=== PATIENT | male | born 1950 | race African-American/Black ===

== ENCOUNTER 2021-04-22 15:16 | Inpatient (IN) | payer MEDICARE, MEDICAID ==
[~2021-04-22] VITALS: Ht 177.8 cm; Wt 80.8 kg
[~2021-04-22 15:16] MED LIST: AMLO10TA80 PO; ASPI-1497 PO; BENA40TA9 PO; FLUT9.9S NS; LORA10TA7 PO; METO-539 PO; P-EP-29 PO; SIMV-43 PO
[2021-04-22] MEDS ORDERED: SODIUM CHLORIDE 0.9% 1,000 ML IV ONE (19:00)
[2021-04-22] MEDS ORDERED: DIPHENHYDRAMINE 50MG/ML VIAL IV ONE (19:00)
[2021-04-22] MEDS ORDERED: CEFAZOLIN 1000MG PREMIX 50 ML IV SCH (19:00)
[2021-04-22 19:10] LABS: BASOPHILS % 0.5 % (0.0-2.0); EOSINOPHILS % 1.9 % (0.0-5.0); HEMATOCRIT. 43.7 % (42.0-52.0); HEMOGLOBIN. 15.2 g/dL (14.0-18.0); LYMPHOCYTES % 16.2 % (20.0-50.0); MEAN CORPUSCULAR HEMOGLOBIN 34.1 pg (28.0-32.0); MEAN CORPUSCULAR VOLUME 97.8 fL (80.0-94.0); MEAN PLATELET VOLUME 7.9 fl (7.4-10.4); MONOCYTES % 8.5 % (2.0-8.0); NEUTROPHILS % 72.9 % (40.0-76.0); PLATELET 336 x1000/uL (130-400); RED BLOOD CELL COUNT 4.47 mill/uL (4.7-6.1); RED CELL DISTRIBUTION WIDTH 13.6 % (11.6-14.6)
[2021-04-22 19:16] LABS: CHLORIDE 98 mEq/L (98-107)
[2021-04-22] MEDS ORDERED: VANCOMYCIN 1 G PREMIX 200 ML IV SCH (22:00)
[2021-04-22] MEDS ORDERED: HYDROCODONE/ACETAMINOPHEN 5/325MG TABLET PO PRN (22:45)
[2021-04-22] MEDS ORDERED: SODIUM POLYSTYRENE SULFONATE 15 G/60 ML BOT PO NR (22:45)
[2021-04-22] MEDS ORDERED: ACETAMINOPHEN 325MG TABLET PO PRN (22:45)
[2021-04-22] MEDS ORDERED: SODIUM CHLORIDE 0.9% 1,000 ML IV SCH (23:45)
[2021-04-22] MEDS ORDERED: VANCOMYCIN 1 G PREMIX 200 ML IV NR (23:45)
[2021-04-23] VITALS (7 sets, daily range): BP systolic 132–153; BP diastolic 70–92
[2021-04-23] MEDS: CEFTRIAXONE 1,000 MG in DEXTROSE 5% WATER 50 ML IV SCH (01:48)
[2021-04-23 03:15] LABS: CLARITY URINE CLEAR (CLEAR); COLOR URINE YELLOW (YELLOW); KETONES URINE NEGATIVE (NEGATIVE); LEUKOCYTE ESTERASE URINE NEGATIVE (NEGATIVE); NITRITE URINE NEGATIVE (NEGATIVE); OCCULT BLOOD URINE NEGATIVE (NEGATIVE); PH URINE 6.5 (4.5-8.0); PROTEIN URINE NEGATIVE (NEGATIVE); SPECIFIC GRAVITY URINE 1.007 (1.005-1.030); UROBILINOGEN URINE 0.2 E.U./dL (0.2-1.0)
[2021-04-23 03:28] LABS: *AMPHETAMINES SCREEN URINE NEGATIVE (NEGATIVE)
[2021-04-23 03:29] LABS: *BARBITURATES SCREEN URINE NEGATIVE (NEGATIVE); *BENZODIAZEPINES SCREEN URINE NEGATIVE (NEGATIVE); *COCAINE SCREEN URINE NEGATIVE (NEGATIVE); METHADONE URINE SCREEN NEGATIVE (NEGATIVE); OPIATES URINE SCREEN NEGATIVE (NEGATIVE); PHENCYCLIDINE URINE SCREEN NEGATIVE (NEGATIVE)
[2021-04-23 03:30] LABS: CANNABINOID URINE SCREEN NEGATIVE (NEGATIVE)
[2021-04-23 06:23] LABS: BASOPHILS % 0.5 % (0.0-2.0); EOSINOPHILS % 1.7 % (0.0-5.0); HEMATOCRIT. 41.3 % (42.0-52.0); HEMOGLOBIN. 14.1 g/dL (14.0-18.0); LYMPHOCYTES % 11.1 % (20.0-50.0); MEAN CORPUSCULAR HEMOGLOBIN 33.8 pg (28.0-32.0); MEAN PLATELET VOLUME 7.6 fl (7.4-10.4); MONOCYTES % 9.6 % (2.0-8.0); NEUTROPHILS % 77.1 % (40.0-76.0); PLATELET 292 x1000/uL (130-400); RED BLOOD CELL COUNT 4.17 mill/uL (4.7-6.1); RED CELL DISTRIBUTION WIDTH 13.5 % (11.6-14.6)
[2021-04-23 06:27] LABS: CHLORIDE 105 mEq/L (98-107)
[2021-04-23 06:38] LABS: LDL CHOLESTEROL 64 mg/dL (5-100)
[2021-04-23 06:40] LABS: HDL CHOLESTEROL 89 mg/dL (40-59)
[2021-04-23] MEDS: AMLODIPINE 10MG TABLET PO SCH (08:47)
[2021-04-23] MEDS: ASPIRIN 81MG TABLET PO SCH (08:47)
[2021-04-23] MEDS: METOPROLOL TARTRATE 50MG TABLET PO SCH (08:47)
[2021-04-23] MEDS: LORATADINE 10MG TABLET PO SCH (08:47)
[2021-04-23] MEDS: VANCOMYCIN 1 G PREMIX 200 ML IV SCH ×2 (08:48→20:28)
[2021-04-23] MEDS ORDERED: BENAZEPRIL 10MG TABLET PO SCH (09:00)
[2021-04-23] MEDS ORDERED: NON FORMULARY PATIENT HOME MED PO SCH (09:00)
[2021-04-23] MEDS ORDERED: LORATADINE 10MG TABLET PO SCH (11:45)
[2021-04-23 13:07] LABS: PHOSPHORUS 3.7 mg/dL (2.5-4.9)
[2021-04-23] MEDS: FLUTICASONE PROPIONATE 50MCG/SPRAY BOTTLE BOTHNSTRLS SCH (14:00)
[2021-04-23 14:22] LABS: HEPATITIS B SURFACE ANTIGEN NEGATIVE
[2021-04-23] MEDS ORDERED: CEFTRIAXONE 1 G PREMIX 50 ML IV SCH (19:00)
[2021-04-23] MEDS: ATORVASTATIN CALCIUM 10MG TABLET PO SCH (20:28)
[2021-04-23] MEDS ORDERED: NALOXONE HCL 0.4MG/ML VIAL IV PRN (20:45)
[2021-04-24] MEDS: CEFTRIAXONE 1,000 MG in DEXTROSE 5% WATER 50 ML IV SCH (00:18)
[2021-04-24 00:53] VITALS: BP 146/84
[2021-04-24 04:00] VITALS: BP 143/87
[2021-04-24 07:02] LABS: BASOPHILS % 0.7 % (0.0-2.0); EOSINOPHILS % 5.9 % (0.0-5.0); HEMATOCRIT. 40.4 % (42.0-52.0); HEMOGLOBIN. 13.6 g/dL (14.0-18.0); LYMPHOCYTES % 17.3 % (20.0-50.0); MEAN CORPUSCULAR HEMOGLOBIN 33.6 pg (28.0-32.0); MEAN CORPUSCULAR VOLUME 99.5 fL (80.0-94.0); MEAN PLATELET VOLUME 8.3 fl (7.4-10.4); MONOCYTES % 9.3 % (2.0-8.0); NEUTROPHILS % 66.8 % (40.0-76.0); PLATELET 294 x1000/uL (130-400); RED BLOOD CELL COUNT 4.06 mill/uL (4.7-6.1); RED CELL DISTRIBUTION WIDTH 13.5 % (11.6-14.6)
[2021-04-24 07:45] LABS: CHLORIDE 102 mEq/L (98-107)
[2021-04-24 08:00] VITALS: BP 134/65
[2021-04-24] MEDS: VANCOMYCIN 1 G PREMIX 200 ML IV SCH ×2 (09:04→21:45)
[2021-04-24] MEDS: FLUTICASONE PROPIONATE 50MCG/SPRAY BOTTLE BOTHNSTRLS SCH (09:04)
[2021-04-24] MEDS: LORATADINE 10MG TABLET PO SCH (09:05)
[2021-04-24] MEDS: TRIAMCINOLONE ACETONIDE 0.1% CREAM 15GM TOP SCH ×2 (09:05→21:49)
[2021-04-24] MEDS: ASPIRIN 81MG TABLET PO SCH (09:05)
[2021-04-24] MEDS: METOPROLOL TARTRATE 50MG TABLET PO SCH (09:05)
[2021-04-24] MEDS: AMLODIPINE 10MG TABLET PO SCH (09:05)
[2021-04-24] MEDS: VITAMINS A AND D OINT TUBE TOP PRN (09:05)
[2021-04-24 12:00] VITALS: BP 151/96
[2021-04-24 16:00] VITALS: BP 152/76
[2021-04-24] MEDS: CYCLOSPORINE, MODIFIED 100MG CAPSULE PO SCH (17:49)
[2021-04-24 20:00] VITALS: BP 135/77
[2021-04-24] MEDS: ATORVASTATIN CALCIUM 10MG TABLET PO SCH (21:45)
[2021-04-25] VITALS: BP 147/80
[2021-04-25] MEDS: CEFTRIAXONE 1,000 MG in DEXTROSE 5% WATER 50 ML IV SCH (00:19)
[2021-04-25 04:00] VITALS: BP 142/87
[2021-04-25 06:15] LABS: BASOPHILS % 0.4 % (0.0-2.0); EOSINOPHILS % 7.2 % (0.0-5.0); HEMATOCRIT. 38.9 % (42.0-52.0); HEMOGLOBIN. 13.3 g/dL (14.0-18.0); MEAN CORPUSCULAR HEMOGLOBIN 33.9 pg (28.0-32.0); MEAN CORPUSCULAR VOLUME 98.9 fL (80.0-94.0); MEAN PLATELET VOLUME 7.9 fl (7.4-10.4); MONOCYTES % 12.5 % (2.0-8.0); NEUTROPHILS % 54.9 % (40.0-76.0); PLATELET 281 x1000/uL (130-400); RED BLOOD CELL COUNT 3.93 mill/uL (4.7-6.1); RED CELL DISTRIBUTION WIDTH 13.1 % (11.6-14.6)
[2021-04-25 06:46] LABS: CHLORIDE 102 mEq/L (98-107)
[2021-04-25] MEDS ORDERED: POTASSIUM CHLORIDE 20MEQ TABLET SR PO SCH (07:00)
[2021-04-25 08:00] VITALS: BP 138/86
[2021-04-25] MEDS: ASPIRIN 81MG TABLET PO SCH (09:19)
[2021-04-25] MEDS: METOPROLOL TARTRATE 50MG TABLET PO SCH (09:19)
[2021-04-25] MEDS: AMLODIPINE 10MG TABLET PO SCH (09:20)
[2021-04-25] MEDS: TRIAMCINOLONE ACETONIDE 0.1% CREAM 15GM TOP SCH ×2 (09:20→21:20)
[2021-04-25] MEDS: LORATADINE 10MG TABLET PO SCH (09:20)
[2021-04-25] MEDS: VITAMINS A AND D OINT TUBE TOP PRN (09:20)
[2021-04-25] MEDS: CYCLOSPORINE, MODIFIED 100MG CAPSULE PO SCH ×2 (09:20→17:16)
[2021-04-25] MEDS: FLUTICASONE PROPIONATE 50MCG/SPRAY BOTTLE BOTHNSTRLS SCH (09:21)
[2021-04-25] MEDS: VANCOMYCIN 1 G PREMIX 200 ML IV SCH (09:21)
[2021-04-25 12:09] VITALS: BP 157/70
[2021-04-25] MEDS ORDERED: FLUO15CR2 TP (12:59)
[2021-04-25] MEDS ORDERED: [UNRECOGNIZED DRUG - CODE] (12:59)
[2021-04-25] MEDS ORDERED: ACYC200C31 PO (12:59)
[2021-04-25] MEDS ORDERED: DIPH25CA83 PO (12:59)
[2021-04-25] MEDS ORDERED: PRIL20 PO (12:59)
[2021-04-25 16:15] VITALS: BP 125/69
[2021-04-25 20:00] VITALS: BP 139/70
[2021-04-25] MEDS: ATORVASTATIN CALCIUM 10MG TABLET PO SCH (21:20)
[2021-04-26] VITALS: BP 134/67
[2021-04-26] MEDS: CEFTRIAXONE 1,000 MG in DEXTROSE 5% WATER 50 ML IV SCH (01:35)
[2021-04-26 04:00] VITALS: BP 137/70
[2021-04-26 05:12] LABS: HIV SCREEN 4G Non Reactive (Non Reactive)
[2021-04-26 08:00] VITALS: BP 142/74
[2021-04-26] MEDS: ASPIRIN 81MG TABLET PO SCH (08:40)
[2021-04-26] MEDS: TRIAMCINOLONE ACETONIDE 0.1% CREAM 15GM TOP SCH (08:40)
[2021-04-26] MEDS: FLUTICASONE PROPIONATE 50MCG/SPRAY BOTTLE BOTHNSTRLS SCH (08:40)
[2021-04-26] MEDS: CYCLOSPORINE, MODIFIED 100MG CAPSULE PO SCH (08:40)
[2021-04-26] MEDS: LORATADINE 10MG TABLET PO SCH (08:41)
[2021-04-26] MEDS: AMLODIPINE 10MG TABLET PO SCH (08:41)
[2021-04-26] MEDS: METOPROLOL TARTRATE 50MG TABLET PO SCH (08:42)
[2021-04-26] MEDS ORDERED: [UNRECOGNIZED DRUG - CODE] PO (09:50)
[2021-04-26] MEDS ORDERED: TC1C15 TOP (09:50)
[2021-04-26 10:09] LABS: ANTI-DNA DOUBLE STRANDED QUANT 1 IU/mL (0-9)
[2021-04-26 10:52] VITALS: BP 142/74
[2021-04-28 13:07] LABS: ANTI-CARDIOLIPIN AB IGA < 9 APL U/mL (0-11); ANTI-CARDIOLIPIN AB IGG < 9 GPL U/mL (0-14); ANTI-CARDIOLIPIN AB IGM 25 MPL U/mL (0-12)
[2021-04-28 19:06] LABS: ALDOLASE 5.2 U/L (3.3-10.3)
[2021-04-29 10:07] LABS: ANGIOTENSION CONVERTING ENZYME 52 U/L (14-82)
[2021-04-29 15:11] LABS: ACTIN (SMOOTH MUSCLE) ANTIBODY 5 Units (0-19); ANTI-MYELOPEROXIDASE AB < 9.0 U/mL (0.0-9.0); ANTI-PROTEINASE 3 ABS < 3.5 U/mL (0.0-3.5)
[2021-04-30 09:07] LABS: ANA IFA Positive (.)
[2021-05-05 15:06] LABS: ATYPICAL P-ANCA <1:20 titer (Neg:<1:20); CYTOPLASMIC C-ANCA <1:20 titer (Neg:<1:20); PERINUCLEAR P-ANCA <1:20 titer (Neg:<1:20)
== END 2021-04-26 12:18 | disposition home or self-care (01) | DRG 603 ==
LOC: ER 15:16 → 7EST 20:09 → ENRESERV 20:31 → 6EST 04-25 16:25
PROVIDERS: ADMIT Internal Medicine; ATTEND Internal Medicine
DX: L03.114 Cellulitis of left upper limb (principal); E87.1 Hypo-osmolality and hyponatremia; E87.2 Acidosis; M35.1 Other overlap syndromes; L03.113 Cellulitis of right upper limb; M19.90 Unspecified osteoarthritis, unspecified site; L30.9 Dermatitis, unspecified; Z96.642 Presence of left artificial hip joint; Z96.651 Presence of right artificial knee joint; M77.41 Metatarsalgia, right foot; E80.6 Other disorders of bilirubin metabolism; D72.821 Monocytosis (symptomatic); R74.01 Elevation of levels of liver transaminase levels; D72.810 Lymphocytopenia; L40.9 Psoriasis, unspecified; B86 Scabies; I77.6 Arteritis, unspecified; C61 Malignant neoplasm of prostate; M70.52 Other bursitis of knee, left knee; R21 Rash and other nonspecific skin eruption; I10 Essential (primary) hypertension; E87.5 Hyperkalemia; K76.0 Fatty (change of) liver, not elsewhere classified; M77.42 Metatarsalgia, left foot; S80.12XA Contusion of left lower leg, initial encounter; S80.11XA Contusion of right lower leg, initial encounter; X58.XXXA Exposure to other specified factors, initial encounter; Y92.89 Other specified places as the place of occurrence of the external cause; Y99.8 Other external cause status; Z86.19 Personal history of other infectious and parasitic diseases; I69.322 Dysarthria following cerebral infarction; Y93.89 Activity, other specified
CPT/HCPCS: 36415; 76700; 80048; 80053; 80061; 80202; 80305; 81003; 82085; 82164; 82595; 83036; 83520; 83605; 83735; 84100; 84145; 84443; 85025; 85651; 86140; 86147; 86225; 86256; 86592; 86705; 86709; 86803; 87070; 87340; 87389; 93005; 93970; 99291; J0690; J0696; J1200; J3370; J7030; J7040; J7060; J7502